=== PATIENT | male | born 1960 | race Two or more races ===

== ENCOUNTER → 2018-06-09 | Outpatient (CLI) | payer OTHER | LOC: BRMIMAGING 14:35 | PROVIDERS: ATTEND Physician Assistant | DX: S89.92XA Unspecified injury of left lower leg, initial encounter (principal); M25.462 Effusion, left knee; S69.92XA Unspecified injury of left wrist, hand and finger(s), initial encounter | CPT/HCPCS: 73110-PO; 73564-PO ==

== ENCOUNTER → 2018-06-19 | Outpatient (CLI) | payer OTHER | LOC: BRMIMAGING 12:10 | DX: M25.552 Pain in left hip (principal); Z47.1 Aftercare following joint replacement surgery | CPT/HCPCS: 73502-PO ==